=== PATIENT | male | born 1985 | race Caucasian/White ===

== ENCOUNTER 2021-12-16 11:12 | Emergency (ER) | payer MEDICAID, SELFPAY ==
--- NOTE | ~2021-12-16 | CT_ITS ---
EXAMINATION: CT ABDOMEN AND PELVIS WITH CONTRAST CLINICAL INFORMATION: Rectal pain with drainage. Concern for abscess. COMPARISON: None TECHNIQUE: Multidetector volumetric images were obtained from the superior aspect of the liver through the pubic symphysis following administration 85 mL of Omnipaque 350 intravenous contrast. Sagittal and coronal reformatted images were obtained on the technologist's workstation. Oral Contrast: No. This CT examination was performed using dose optimization techniques as appropriate, variously including the following: *Automated exposure control. *Adjustment of mA and/or kV according to patient size (this includes techniques or standardized protocols for targeted exams where dose is matched to indication/reason for exam; i.e. extremities or head). *Use of iterative reconstruction technique. DLP: 457 mGy-cm FINDINGS: LUNG BASES: The visualized lung bases are unremarkable. LIVER, GALLBLADDER, AND BILIARY TREE: There are numerous too small to characterize liver hypodensities which statistically are in favor to represent simple cysts. The gallbladder is within normal limits. No biliary ductal dilatation. PANCREAS: Unremarkable. SPLEEN: Unremarkable. ADRENAL GLANDS: Unremarkable. KIDNEYS AND URETERS: The kidneys are normal in size, shape, and attenuation. No hydronephrosis, hydroureter, or calculi seen. No perinephric stranding. BLADDER: Unremarkable. GASTROINTESTINAL TRACT: Evaluation of the rectum and anus is suboptimal due to underdistention. However, accounting for these limitations, there is some degree of asymmetry hyperattenuating wall thickening in the left lower rectal wall with a small focus of air on coronal image 54 of series 8. A drainable collection or abscess is not identified. Normal appendix. Sigmoid diverticulosis but no significant pericolonic inflammatory changes to suspect acute diverticulitis. No bowel obstruction. ABDOMINAL WALL: No significant hernia is appreciated. LYMPH NODES: No lymphadenopathy by size criteria. VASCULAR: Unremarkable. PELVIC VISCERA: Unremarkable. OSSEOUS STRUCTURES: There are innumerable nonaggressive-appearing sclerotic foci in the pelvis and femurs. CT/CT abdomen pelvis w con IMPRESSION: 1. Limited evaluation of the rectum and anus due to underdistention. There is suggestion of asymmetric wall thickening of the left lower rectal wall with a small focus of air, which is nonspecific and could be associated with proctitis, early phlegmonous changes or a fistulous tract. Recommend correlation with physical examination and, if indicated, further evaluation with a pelvic MRI with and without intravenous contrast, perianal fistula protocol. 2. Diverticulosis without evidence of acute diverticulitis. 3. 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
[2021-12-16 11:23] VITALS: BP 140/102; PULSE 85; RESP 18; TEMP 36.6; O2SAT 97; BMI 30.1
[2021-12-16] MEDS: Acetaminophen 325 MG TABLET 650 MG PO (12:47)
--- NOTE | 2021-12-16 15:11 | ED.GENADULT ---
HPI - General Adult General Chief complaint: General Medical Stated complaint: Pain in Buttocks Time Seen by Provider: 12/16/21 15:04 Source: patient Mode of arrival: ambulatory History of Present Illness HPI narrative: 36-year-old male with past medical history COVID-19 positive 1 week ago presenting to the ED complaining acute on chronic rectal pain/pressure. Admits symptoms started 1 year ago however worsened x1 week. States he is unable to sit, painful BMs and also unable to hold his stool, has intermittent leakage & intermittent blood when he wipes. Denies known history of hemorrhoids. Denies abdominal pain, fever, nausea/vomiting, constipation. Denies any foreign body insertion Onset (ago): day(s) Related Data Allergies Allergy/AdvReac Type Severity Reaction Status Date / Time No Known Allergies Allergy Unverified 03/05/20 15:47 [No Known Allergies*] Review of Systems Review of Systems: Constitutional: No Fever, No Chills, No Fatigue, No Malaise ENT/Mouth: No Ear Pain, No Nasal Congestion, No Sinus Pain, No Hoarseness, No sore throat, No Rhinorrhea, No Swallowing Difficulty Eyes: No Eye Pain, No Swelling, No Vision Changes Cardiovascular: No Chest Pain, No SOB Respiratory: No Cough, No Sputum, No Wheezing, No Smoke Exposure, No Dyspnea Gastrointestinal: No Nausea, No Vomiting, No Diarrhea, No Constipation, No Abdominal pain, +rectal pain, +stool leakage, +intermittent bloody BMs Genitourinary: No irregular bleeding, No Dysuria, No Urinary Frequency, No Hematuria, No Urinary Incontinence/retention, No Flank Pain, No Urinary Flow Changes, No Hesitancy Musculoskeletal: No joint pain, No Myalgias, No Joint Swelling Skin: No Skin Lesions, No rash Neuro: No Weakness, NNo Dizziness, No Headache Yes all other systems are reviewed and are negative PMFSH Past Medical History Attestation statement: The following information was validated with the patient. Social History Social History Advance Directives: No Advance Directives Information Provided: No Physical Exam ED Vital Signs: Vital Signs - 24 hr 12/16/21 11:23 12/16/21 15:24 Temperature 97.9 F 98.9 F Pulse Rate 85 80 Respiratory Rate 18 16 Blood Pressure 140/102 H 141/86 H Pulse Oximetry 97 98 Oxygen Delivery Method Room Air Room Air BMI result Body Mass Index 30.1 Const General: cooperative, healthy appearing and no acute distress Orientation/consciousness: patient oriented x3 Limitations: no limitations HENMT Head: Yes normal to inspection and Yes atraumatic Ears: hearing grossly normal bilaterally General nose exam: Normal external nose present Face and sinus: Yes normal facial exam Eyes General: appearance normal, both eyes and all related structures EOM: EOMs intact bilaterally Neck Neck: Yes normal visual inspection and Yes no meningeal signs Resp Effort & Inspection: normal respiratory effort and no respiratory distress Auscultation: clear to auscultation bilaterally Cardio Rate: regular rate Heart sounds: S1 normal heart sound present and S2 normal heart sound present GI Other: Fungal skin/contact dermatitis noted perianally. + stool/pus leakage noted. On MACK + fluctuance noted to superior 12:00 o'clock region with tenderness Inspection: Yes normal to inspection Palpation (GI): Soft to palpation, nontender, no guarding and not rigid Rectal Exam - Male: No External hemorrhoid(s) present, No Internal hemorrhoid(s) present and Yes tenderness Skin Rashes: no rashes Wounds: no wounds Neuro General: patient oriented x3, tone normal and no meningeal signs Gait exam (Neuro): Normal gait present Extrem General: Yes normal to inspection Course Course Course Narrative: -1745--patient's IV infiltrated while in CT, reports pain and pressure to left bicep. + tender to palpation with firmness, not circumferential, distal pulses intact, no evidence of compartment syndrome at this time. IV was removed -1800--AST/ALT mildly elevated, lactic acid negative. Occult stool negative -COVID-19 positive -no leukocytosis -1900-- ED care transferred to JOSE Hart pending CT results and dispo per results Medical Decision Making [facility] Narrative Medical decision making narrative: 36-year-old male with past medical history COVID-19 positive 1 week ago presenting to the ED complaining acute on chronic rectal pain/pressure. On exam vital signs stable, NAD, nontoxic, abdomen soft/nontender, rectal exam noted as above concerning for perirectal abscess vs fistula. No evidence of hemorrhoids or perianal abscess. Plan: Labs, UA, CT abdomen/pelvis Medical Records Medical records reviewed: Yes I reviewed the patient's medical records. Lab Data Lab results reviewed: Yes I reviewed the patient's lab results. Result diagrams: 12/16/21 17:59 12/16/21 16:36 Labs: Lab Results 12/16/21 12/16/21 12/16/21 Range/Units 16:35 16:36 16:36 WBC (4.8-10.8) X10*3/uL RBC (4.60-5.80) X10*6/uL Hgb (14.0-18.0) g/dl Hct (42.0-52.0) % MCV (80.0-98.0) fL MCH (27.0-33.0) pg MCHC (31.0-36.0) g/dl RDW (11.0-16.0) % Plt Count (160-400) X10*3/uL MPV (9.4-12.4) fL Immature Gran % (Auto) (0.0-0.4) % Neut % (Auto) (45-73) % Lymph % (Auto) (20-40) % [place] % (Auto) (2-11) % Eos % (Auto) (0-4) % Baso % (Auto) (0-2) % Lymph # (Auto) (1.2-4.9) X10*3/uL [place] # (Auto) (0.1-1.2) X10*3/uL Eos # (Auto) (0.0-0.4) X10*3/uL Baso # (Auto) (0.0-0.2) X10*3/uL Abs Immat Gran (auto) (0.00-0.03) X10*3/uL Absolute Neuts (auto) (2.0-8.3) x10*3/uL Absolute Nucleated RBC (0.0-0.012) X10*3/uL Nucleated RBC % (auto) (0.0-0.2) /100WBC PT (10.0-13.1) SEC INR (0.9-1.1) Sodium 140 (135-145) mmol/L Potassium 4.5 (3.3-5.1) mmol/L Chloride 105 (96-108) mmol/L Carbon Dioxide 24 (22-29) mmol/L Anion Gap 16 (12-20) BUN 13 (9-16) mg/dL Creatinine 1.10 (0.5-1.4) mg/dL Estim Creat Clear Calc 83.6 Estimated GFR > 60 Random Glucose 88 (60-115) mg/dL Lactic Acid 1.1 (0.5-2.0) mmol/L Calcium 9.4 (8.4-10.2) mg/dL Magnesium 2.2 (1.6-2.6) mg/dL Total Bilirubin 0.9 (0.0-1.0) mg/dL Direct Bilirubin 0.3 (0.0-0.5) mg/dL AST 50 H (5-37) U/L ALT 68 H (0-40) U/L Alkaline Phosphatase 83 (39-117) U/L C-Reactive Protein 0.38 (< or = 0.50) mg/dL Total Protein 7.6 (6.5-8.0) g/dL Albumin 4.5 (3.5-5.0) g/dL Lipase 16 (8-78) U/L Stool Occult Blood (NEGATIVE) COVID-19 (GOLDEN) Positive A (Negative) COVID-19 Clin Com See Note 12/16/21 12/16/21 12/16/21 Range/Units 16:54 17:59 17:59 WBC 5.6 (4.8-10.8) X10*3/uL RBC 5.27 (4.60-5.80) X10*6/uL Hgb 15.1 (14.0-18.0) g/dl Hct 44.9 (42.0-52.0) % MCV 85.2 (80.0-98.0) fL MCH 28.7 (27.0-33.0) pg MCHC 33.6 (31.0-36.0) g/dl RDW 12.4 (11.0-16.0) % Plt Count 166 (160-400) X10*3/uL MPV 12.3 (9.4-12.4) fL Immature Gran % (Auto) 0.2 (0.0-0.4) % Neut % (Auto) 55.1 (45-73) % Lymph % (Auto) 33.3 (20-40) % [place] % (Auto) 10.5 (2-11) % Eos % (Auto) 0.7 (0-4) % Baso % (Auto) 0.2 (0-2) % Lymph # (Auto) 1.9 (1.2-4.9) X10*3/uL [place] # (Auto) 0.6 (0.1-1.2) X10*3/uL Eos # (Auto) 0.0 (0.0-0.4) X10*3/uL Baso # (Auto) 0.0 (0.0-0.2) X10*3/uL Abs Immat Gran (auto) 0.01 (0.00-0.03) X10*3/uL Absolute Neuts (auto) 3.1 (2.0-8.3) x10*3/uL Absolute Nucleated RBC 0.000 (0.0-0.012) X10*3/uL Nucleated RBC % (auto) 0.0 (0.0-0.2) /100WBC PT 11.3 (10.0-13.1) SEC INR 1.0 (0.9-1.1) Sodium (135-145) mmol/L Potassium (3.3-5.1) mmol/L Chloride (96-108) mmol/L Carbon Dioxide (22-29) mmol/L Anion Gap (12-20) BUN (9-16) mg/dL Creatinine (0.5-1.4) mg/dL Estim Creat Clear Calc Estimated GFR Random Glucose (60-115) mg/dL Lactic Acid (0.5-2.0) mmol/L Calcium (8.4-10.2) mg/dL Magnesium (1.6-2.6) mg/dL Total Bilirubin (0.0-1.0) mg/dL Direct Bilirubin (0.0-0.5) mg/dL AST (5-37) U/L ALT (0-40) U/L Alkaline Phosphatase (39-117) U/L C-Reactive Protein (< or = 0.50) mg/dL Total Protein (6.5-8.0) g/dL Albumin (3.5-5.0) g/dL Lipase (8-78) U/L Stool Occult Blood POSITIVE (NEGATIVE) COVID-19 (GOLDEN) (Negative) COVID-19 Clin Com Discharge Plan Discharge Clinical Impression: Rectal pain, COVID-19 Patient Disposition: Still a Patient
[2021-12-16 15:24] VITALS: BP 141/86; PULSE 80; RESP 16; TEMP 37.2; O2SAT 98
--- NOTE | 2021-12-16 15:33 | PC.NURSE ---
assisted pa with rectal exam, pt tolerated procedure.
[2021-12-16] MEDS: 0.9 % Sodium Chloride 1,000 ML 999 ML IV (16:06)
[2021-12-16 16:56] LABS: COVID-19 Test Positive (Negative)
[2021-12-16 17:00] LABS: Lactic Acid 1.1 mmol/L (0.5-2.0)
[2021-12-16 17:03] LABS: OBS1 POSITIVE (NEGATIVE)
[2021-12-16 17:04] LABS: Alanine Aminotransferase 68 U/L (0-40); Albumin Level 4.5 g/dL (3.5-5.0); Alkaline Phosphatase 83 U/L (39-117); Anion Gap 16 (12-20); Aspartate Amino Transferase 50 U/L (5-37); Bilirubin Direct 0.3 mg/dL (0.0-0.5); Bilirubin Total 0.9 mg/dL (0.0-1.0); Blood Urea Nitrogen 13 mg/dL (9-16); C Reactive Protein 0.38 mg/dL (< or = 0.50); Calcium 9.4 mg/dL (8.4-10.2); Carbon Dioxide 24 mmol/L (22-29); Chloride 105 mmol/L (96-108); Creatinine Clr Calc Pharmacy 83.6; Estimated Glomerular Filt Rate > 60; Glucose Random 88 mg/dL (60-115); Lipase 16 U/L (8-78); Magnesium 2.2 mg/dL (1.6-2.6); Potassium 4.5 mmol/L (3.3-5.1); Sodium 140 mmol/L (135-145); Total Protein 7.6 g/dL (6.5-8.0)
[2021-12-16 17:04] LABS: OBS Int Ctl Valid YES
--- NOTE | 2021-12-16 17:48 | PC.NURSE ---
Bebe ACOSTA attempting to obtain new IV access at this time. Previous IV access infiltrated. Re-draw on hemolyzed labs will also be attempted.
[2021-12-16 18:09] LABS: Basophils Percent Auto 0.2 % (0-2); Eosinophils Percent Auto 0.7 % (0-4); Hematocrit 44.9 % (42.0-52.0); Hemoglobin 15.1 g/dl (14.0-18.0); Imm Gran Abs Auto 0.01 X10*3/uL (0.00-0.03); Imm Gran Pct Auto 0.2 % (0.0-0.4); Lymphocytes Absolute Auto 1.9 X10*3/uL (1.2-4.9); Lymphocytes Percent Auto 33.3 % (20-40); Mean Corpuscular HGB Conc 33.6 g/dl (31.0-36.0); Mean Corpuscular Hemoglobin 28.7 pg (27.0-33.0); Mean Corpuscular Volume 85.2 fL (80.0-98.0); Mean Platelet Volume 12.3 fL (9.4-12.4); Monocytes Absolute Auto 0.6 X10*3/uL (0.1-1.2); Monocytes Percent Auto 10.5 % (2-11); Neutrophils Absolute Auto 3.1 x10*3/uL (2.0-8.3); Neutrophils Percent Auto 55.1 % (45-73); Platelet Count 166 X10*3/uL (160-400); Red Blood Count 5.27 X10*6/uL (4.60-5.80); Red Cell Distribution Width 12.4 % (11.0-16.0); White Blood Count 5.6 X10*3/uL (4.8-10.8)
[2021-12-16] MEDS: iohexoL 350 MG/ML 100 ML INFUS..BTL IV (18:12)
[2021-12-16 18:23] LABS: Prothrombin Time 11.3 SEC (10.0-13.1)
[2021-12-16 19:09] LABS: Erythrocyte Sedimentation Rate 23 MM/HR (0-15)
== END 2021-12-16 20:20 | disposition home or self-care (01) ==
PROVIDERS: Physician Assistant; Emergency Provider Emergency Medicine
DX: U07.1 COVID-19 (principal); K62.89 Other specified diseases of anus and rectum; K92.1 Melena; R15.1 Fecal smearing
CPT/HCPCS: 74177; 80048; 80076; 82272; 83605; 83690; 83735; 85025; 85610; 85652; 86140; 87040; 87635; 96360; 99283; 99284; Q9967

== ENCOUNTER 2022-08-22 17:24 | Emergency (ER) | payer MEDICAID, SELFPAY ==
--- NOTE | 2022-08-22 17:57 | ED.SKABFB ---
HPI - Skin/Abscess/Foreign Bdy General Chief complaint: Skin/Abscess/Foreign Body Stated complaint: bed bugs Related Data Previous Rx's Medication Instructions Recorded amoxicillin 875 mg-potassium 1 tab PO BID #14 tabs 12/16/21 clavulanate 125 mg tablet docusate sodium 100 mg capsule 100 mg PO BID #60 caps 12/16/21 (Colace) oxycodone 5 mg tablet 5 mg PO Q6H PRN pain #10 tabs 12/16/21 Allergies Allergy/AdvReac Type Severity Reaction Status Date / Time No Known Allergies Allergy Unverified 03/05/20 15:47 [No Known Allergies*] [facility] Social History Social History Advance Directives: No Advance Directives Information Provided: No Physical Exam Vital Signs: Vital Signs: Last Vital Signs Temp 98.0 F 08/22/22 18:00 Pulse 105 H 08/22/22 18:00 Resp 20 08/22/22 18:00 BP 144/109 H 08/22/22 18:00 Pulse Ox 97 08/22/22 18:00 O2 Del Method 08/22/22 18:00 BMI result Body Mass Index 31.8 Course Course Course Narrative: RME - 37 yo male presents to the ER for evaluation of bed bugs after he stayed in a hotel 2 nights ago. He feels them on his groin, in his hair, his eyes, his mouth, his read, arms and legs. He says they are flying all over in his car. In triage room he is pulling his hair out to show the bugs. Not visible bites or bugs. He has injected sclera bilaterally. He has excoriations on his subprapubic area, raw open skin. Will need full skin assessment but no visible bites on brief exam. Discharge Plan Discharge Clinical Impression: Itchy skin Patient Disposition: Elopement Prescriptions: No Action amoxicillin-pot clavulanate 875-125 mg tablet 1 tab PO BID Qty: 14 0RF docusate sodium [Colace] 100 mg capsule 100 mg PO BID Qty: 60 0RF oxycodone 5 mg tablet 5 mg PO Q6H PRN (Reason: pain) Qty: 10 0RF Rx Instructions: Partial Fill upon patient request.
[2022-08-22 18:00] VITALS: BP 144/109; PULSE 105; RESP 20; TEMP 36.7; O2SAT 97; BMI 31.8
== END 2022-08-22 19:47 | disposition left against medical advice (07) ==
PROVIDERS: Emergency Provider Internal Medicine
DX: L29.9 Pruritus, unspecified (principal); F12.90 Cannabis use, unspecified, uncomplicated
CPT/HCPCS: 99281

== ENCOUNTER 2022-08-28 05:07 | Emergency (ER) | payer MEDICAID, SELFPAY ==
[2022-08-28 05:30] VITALS: BP 134/68; PULSE 86; RESP 16; TEMP 36.6; O2SAT 98; BMI 31.8
[2022-08-28] MEDS: diphenhydrAMINE HCL 25 MG CAPSULE PO (06:04)
--- NOTE | 2022-08-28 06:05 | PC.NURSE ---
Patient alert and oriented x3. Reports bugs all over his body. This RN unable to locate any bugs. Administered Benadryl 25mg as per aug.
--- NOTE | 2022-08-28 06:25 | ED_ITS ---
HPI - General Adult General Chief complaint: Skin/Abscess/Foreign Body Stated complaint: bugs all over body Time Seen by Provider: 08/28/22 06:00 Source: patient Mode of arrival: ambulatory Limitations: no limitations History of Present Illness HPI narrative: Patient is homeless was staying at his sister's house just prior to arrival when to modal and says that there are bugs in the motel. Few red lockwood at the back Related Data Previous Rx's Medication Instructions Recorded amoxicillin 875 mg-potassium 1 tab PO BID #14 tabs 12/16/21 clavulanate 125 mg tablet docusate sodium 100 mg capsule 100 mg PO BID #60 caps 12/16/21 (Colace) oxycodone 5 mg tablet 5 mg PO Q6H PRN pain #10 tabs 12/16/21 diphenhydramine HCl 25 mg capsule 25 mg PO TID PRN itching #10 caps 08/28/22 (Benadryl) Allergies Allergy/AdvReac Type Severity Reaction Status Date / Time No Known Allergies Allergy Unverified 03/05/20 15:47 [No Known Allergies*] Review of Systems Review of Systems: Yes all other systems are reviewed and are negative [facility] Social History Social History Alcohol intake: current Alcohol intake frequency: a few times a week Alcohol type: beer Smoked in Last 30 Days: Yes Use of substances other than those prescribed or required for medical reasons: Yes Substance Use Type: Marijuana Substance Use Frequency: Daily Last Used Substance: Days (ago) Any prior treatment program specific to substance use: No Advance Directives: No Advance Directives Information Provided: Yes Physical Exam ED Vital Signs: Vital Signs - 24 hr 08/28/22 05:30 Temperature 97.8 F Pulse Rate 86 Respiratory Rate 16 Blood Pressure 134/68 Pulse Oximetry 98 Oxygen Delivery Method Room Air BMI result Body Mass Index 31.8 Appearance: Alert. Oriented X3. No acute distress. ENT: Pharynx normal. Oral Mucosa moist Neck: Normal inspection. Neck supple. CVS: Normal heart rate and rhythm. Pulses normal. Respiratory: No respiratory distress. Equal air entry bilateral, Abdomen: Soft and nontender. Skin: Skin warm and dry. Normal skin color. Normal skin turgor. Small red lockwood at the back no signs of scabies no bugs were seen Neuro: Oriented X 3. Medications Administered Discontinued Medications Generic Name Dose Route Start Last Admin Trade Name Freq PRN Reason Stop Dose Admin Diphenhydramine HCl 25 mg 08/28/22 06:00 08/28/22 06:04 Diphenhydramine Hcl 25 Mg Capsule PO 08/28/22 06:01 25 mg ONCE ONE Administration Medical Decision Making Medical Decision Making MDM Narrative: Patient homeless status and unkept condition nose signs of scabies or bug seen on him patient advised to wash his clothes and moved to different place Discharge Plan Discharge Clinical Impression: Insect bites Patient Disposition: Home, Self-Care Additional Instructions: No bedbugs were seen clearly no signs of scabies Take shower wash all clothes Benadryl for itching Prescriptions: New diphenhydramine HCl [Benadryl] 25 mg capsule 25 mg PO TID PRN (Reason: itching) Qty: 10 0RF No Action amoxicillin-pot clavulanate 875-125 mg tablet 1 tab PO BID Qty: 14 0RF docusate sodium [Colace] 100 mg capsule 100 mg PO BID Qty: 60 0RF oxycodone 5 mg tablet 5 mg PO Q6H PRN (Reason: pain) Qty: 10 0RF Rx Instructions: Partial Fill upon patient request. Interventions: ED Discharge Assessment Last Done: 08/28/22 06:16 Discharge Date/Time: 08/28/22 06:18
== END 2022-08-28 06:18 | disposition home or self-care (01) ==
PROVIDERS: Emergency Provider Internal Medicine
DX: B86 Scabies (principal); Z79.899 Other long term (current) drug therapy
CPT/HCPCS: 99283; 99284